=== PATIENT | female | born 1970 | race Caucasian/White ===

== ENCOUNTER 2022-11-15 08:08 | Outpatient (CLI) | payer OTHER, SELFPAY ==
--- NOTE | 2022-11-15 08:15 | CRLHL7_ITS ---
For Patients: As a result of the Century Cures Act, medical imaging exams and procedure reports are released immediately into your electronic medical record. You may view this report before your referring provider. If you have questions, please contact your health care provider. BILATERAL SCREENING MAMMOGRAM WITH COMPUTER-AIDED DETECTION TECHNIQUE: CC and MLO views were obtained. These mammographic images have been obtained using full-field digital technique. These mammographic images were interpreted with the benefit of computer-aided detection. COMPARISON FILM: 06/13/20, 06/16/18, 08/13/16. FINDINGS: There are scattered areas of fibroglandular density. IMPRESSION: There is no radiographic evidence for malignancy. ASSESSMENT: BI-RADS Category 1: Negative RECOMMENDATION: Routine screening mammogram in 1 year. A lay language report of this examination will be provided to the patient. JIMMIE AUSTIN M.D. Diagnostic Radiologist [email or web address] Transcribed: 11/15/2022, 1:[address]/Dictated by: Jimmie Austin MD @ 11/15/2022 8:37:00 AM (Electronically Signed)
== END 2022-11-15 08:09 | disposition home or self-care (01) ==
LOC: MAMMO 08:09
PROVIDERS: PCP Physician Assistant Medical; Visit Provider Physician Assistant Medical
DX: Z12.31 Encounter for screening mammogram for malignant neoplasm of breast (principal)
CPT/HCPCS: 77067

== ENCOUNTER 2023-10-21 08:16 | Outpatient (CLI) | payer OTHER, SELFPAY | END 2023-10-21 08:17 | disposition home or self-care (01) | LOC: NFLDREF 10-31 10:29 | PROVIDERS: PCP Physician Assistant Medical; Referring Provider Physician Assistant Medical; Visit Provider Physician Assistant Medical | DX: Z00.00 Encounter for general adult medical examination without abnormal findings (principal); F41.9 Anxiety disorder, unspecified; F41.1 Generalized anxiety disorder; Z13.9 Encounter for screening, unspecified; Z13.6 Encounter for screening for cardiovascular disorders | CPT/HCPCS: 80053; 80061; 84443 ==

== ENCOUNTER 2025-03-15 13:55 | Outpatient (CLI) | payer OTHER, SELFPAY ==
--- NOTE | 2025-03-15 14:00 | CRLHL7_ITS ---
For Patients: As a result of the Century Cures Act, medical imaging exams and procedure reports are released immediately into your electronic medical record. You may view this report before your referring provider. If you have questions, please contact your health care provider. INDICATION: BILATERAL SCREENING MAMMOGRAM, ASYMPTOMATIC 55 Y/O FEMALE COMPARISON: 11/15/2022, 06/13/2020, 06/16/2018 TECHNIQUE: Digital mammogram in CC and MLO projections including computer-aided detection (CAD) and tomosynthesis. BREAST COMPOSITION: There are scattered areas of fibroglandular density. FINDINGS: No suspicious findings. ASSESSMENT: BI-RADS 1 Negative RECOMMENDATION: Annual screening mammogram. A lay language report of this examination will be provided to the patient. Dictated by: Terra Figueroa MD @ 03/17/2025 11:11:49 (Electronically Signed)
== END 2025-03-15 13:56 | disposition home or self-care (01) ==
LOC: MAMMO 13:55
PROVIDERS: PCP Physician Assistant Medical; Visit Provider Physician Assistant Medical
DX: Z12.31 Encounter for screening mammogram for malignant neoplasm of breast (principal)
CPT/HCPCS: 77063; 77067